=== PATIENT | female | born 1935 | race Caucasian/White ===

== ENCOUNTER 2017-10-20 09:26 | Inpatient (IN) | payer MEDICARE ==
[2017-10-20] VITALS (20 sets, daily range): BP systolic 126–226; BP diastolic 71–124; PULSE 74–99; RESP 18–43; TEMP 97.9–98.5; O2SAT 93–100
[~2017-10-20 09:26] MED LIST: ADVA250A INH; AMBI10TA PO; ATOR20TA42 PO; CALTTAB2 PO; COZA50TA PO; NORC7.5T PO; RIVA10 PO; SERT-132 PO; TAB-TAB PO; VITA10004 PO; WALKER STANDARD; Z.0.WHEELSTD
[2017-10-20 09:49] LABS: AUTOMATED NEUTROPHIL # 6.9 TH/MM3 (1.8-7.7); BASOPHIL % 0.4 % (0.0-2.0); EOSINOPHIL # 0.2 TH/MM3 (0-0.4); EOSINOPHIL % 2.1 % (0.0-4.0); HEMATOCRIT 40.8 % (35.0-46.0); HEMOGLOBIN 13.6 GM/DL (11.6-15.3); LYMPH % 9.7 % (9.0-44.0); LYMPHOCYTE # 0.8 TH/MM3 (1.0-4.8); MEAN CELL VOLUME 99.4 FL (80.0-100.0); MEAN CORPUSCULAR HEMOGLOBIN 33.1 PG (27.0-34.0); MEAN CORPUSCULAR HGB CONC 33.3 % (32.0-36.0); MEAN PLATELET VOLUME 7.9 FL (7.0-11.0); MONOCYTE # 0.7 TH/MM3 (0-0.9); NEUT % 79.8 % (16.0-70.0); PLATELET COUNT 250 TH/MM3 (150-450); RED BLOOD COUNT 4.11 MIL/MM3 (4.00-5.30); RED CELL DISTRIBUTION WIDTH 11.6 % (11.6-17.2); WHITE BLOOD COUNT 8.6 TH/MM3 (4.0-11.0)
[2017-10-20] MEDS ORDERED: MONT10TA4 PO (09:53)
[2017-10-20] MEDS ORDERED: BENZ1CAP54 PO (09:53)
[2017-10-20] MEDS ORDERED: CALC1TAB87 PO (09:53)
[2017-10-20] MEDS ORDERED: SERT-132 PO (09:53)
[2017-10-20] MEDS ORDERED: HYDR-2376 PO (09:53)
[2017-10-20] MEDS ORDERED: IPRASOL INH (09:53)
[2017-10-20] MEDS ORDERED: [UNRECOGNIZED DRUG - CODE] IV (09:53)
[2017-10-20] MEDS ORDERED: CYAN100025 SL (09:53)
[2017-10-20] MEDS ORDERED: ZOLP5TAB3 PO (09:53)
[2017-10-20] MEDS ORDERED: BUTA1CAP PO (09:53)
[2017-10-20] MEDS ORDERED: MULTTAB67 PO (09:53)
[2017-10-20] MEDS ORDERED: AZIT250T3 PO (09:53)
[2017-10-20] MEDS ORDERED: LEVO1INJ13 IV (09:53)
[2017-10-20] MEDS ORDERED: BUDE0.5S NEB (09:53)
[2017-10-20 09:58] LABS: CALCIUM 9.3 MG/DL (8.5-10.1)
[2017-10-20] MEDS ORDERED: LOSA100T PO (09:58)
[2017-10-20 09:59] LABS: BICARBONATE 26.9 MEQ/L (21.0-32.0)
--- NOTE | 2017-10-20 09:59 | PD ---
HPI Chief Complaint: Respiratory Symptoms Time Seen by Provider: 09:57 Travel History International Travel<30 days: No Contact w/Intl Traveler<30days: No Traveled to known affect area: No History of Present Illness HPI Patient presents with increased shortness of breath since Sunday. History of bronchiectasis and asthma followed by Dr. Warren. Apparently receiving Levaquin and Solu-Medrol infusions daily since Sunday. Awoke this morning with more labored breathing and difficulty clearing airway. She does not use oxygen at home. She did give herself some breathing treatments with minimal improvement. History of hypertension. She did not take her blood pressure medications this morning. Denies any nausea vomiting diarrhea or fever. Denies any chest pain. Denies any diaphoresis. Denies any radiation to left arm or jaw. Past medical history for hypertension and hyperlipidemia. PFSH Past Medical History Arthritis: Yes Asthma: Yes Depression: Yes Heart Rhythm Problems: No Cancer: No Cardiovascular Problems: Yes High Cholesterol: Yes Chest Pain: No Congestive Heart Failure: No COPD: Yes Diabetes: No Diminished Hearing: No Endocrine: No Genitourinary: No Hepatitis: No Hiatal Hernia: No Hypertension: Yes Immune Disorder: No Implanted Vascular Access Dvce: Yes Insomnia: Yes Musculoskeletal: Yes (ARTHRITIS, PREV SOLEDAD KNEE REPLACEMENTS) Neurologic: Yes (NEUROPATHY) Psychiatric: No Reproductive: No Respiratory: Yes Pneumonia: Yes Sleep Apnea: No Thyroid Disease: No Influenza Vaccination: Yes ?: Not Menopausal: Yes Past Surgical History Abdominal Surgery: No AICD: No Arteriovenous Shunt: No Cardiac Surgery: No Ear Surgery: No Endocrine Surgery: No Eye Surgery: Yes (CATARACTS BOTH EYES) Genitourinary Surgery: No Gynecologic Surgery: No Insulin Pump: No Joint Replacement: Yes (BILATERAL KNEE REPLACEMENTS) Oral Surgery: Yes (TONSILLECTOMY) Pacemaker: No Thoracic Surgery: No Tonsillectomy: Yes Other Surgery: Yes (right femur with plate) Social History Alcohol Use: Yes (WINE DAILY) Tobacco Use: No Substance Use: No Allergies-Medications (Allergen,Severity, Reaction): Coded Allergies: codeine (Unverified Adverse Reaction, Severe, NAUSEA, 10/20/17) Reported Meds & Prescriptions Reported Meds & Active Scripts Active Reported Losartan (Losartan Potassium) 100 Mg Tab 100 Mg PO DAILY Benzonatate 100 Mg Cap 100 Mg PO TID PRN Dexamethasone Inj 10 Mg/Ml Inj 10 Mg IV DAILY Levofloxacin Inj 500 Mg/100 Ml Bagp 500 Mg IV Q24H Duoneb (Ipratropium-Albuterol Neb) 0.5-2.5 Mg/3 Ml Neb 1 Nebule INH Q4HR NEB Budesonide Neb 0.5 Mg/2 Ml Neb 0.5 Mg NEB Q12HR NEB B-12 (Cyanocobalamin) 1,000 Mcg Subl 1,000 Mcg SL DAILY Calcium 600 with Vitamin D (Calcium Carbonate-Cholecalciferol) 600-400 mg-Unit Tab 2 Tab PO DAILY Multiple Vitamin 1 Tab 1 Tab PO DAILY Hydrocodone-Acetaminophen 7.5-300 Mg Tab 1 Tab PO Q4H PRN Azithromycin 250 Mg Tab 250 Mg PO DIRECTED Take 2 tabs (500 mg) on day 1 then 1 tab daily x 4 days. Fioricet (Jedyudbbnv-Qtrhamhjhmprw-Viqbobjd) 50-300-40 Mg Cap 1 Cap PO Q4H PRN Montelukast (Montelukast Sodium) 10 Mg Tab 10 Mg PO HS Zolpidem (Zolpidem Tartrate) 5 Mg Tab 5 Mg PO HS PRN Sertraline (Sertraline HCl) 50 Mg Tab 50 Mg PO DAILY Review of Systems Respiratory: Positive: Cough, Shortness of Breath, Wheezing Physical Exam Narrative GENERAL: Well-nourished, well-developed patient. SKIN: Focused skin assessment warm/dry. HEAD: Normocephalic. EYES: No scleral icterus. No injection or drainage. NECK: Supple, trachea midline. No JVD or lymphadenopathy. CARDIOVASCULAR: Regular rate and rhythm without murmurs, gallops, or rubs. RESPIRATORY: Decreased breath sounds in all shaikh using accessory muscles, and expiratory wheeze GASTROINTESTINAL: Abdomen soft, non-tender, nondistended. MUSCULOSKELETAL: No cyanosis, or edema. BACK: Nontender without obvious deformity. No CVA tenderness. Data Data Last Documented VS Vital Signs Date Time Temp Pulse Resp B/P (MAP) Pulse Ox O2 Delivery O2 Flow Rate FiO2 10/20/17 10:57 99 20 163/91 (115) 99 Nasal Cannula 2.00 10/20/17 10:15 98.3 Orders Orders Complete Blood Count With Diff (10/20/17 09:30) Basic Metabolic Panel (Bmp) (10/20/17 09:30) Iv Access Insert/Monitor (10/20/17 09:30) Ecg Monitoring (10/20/17 09:30) Oxygen Administration (10/20/17 09:30) Oximetry (10/20/17 09:30) Electrocardiogram (10/20/17 09:30) Comprehensive Metabolic Panel (10/20/17 09:59) B-Type Natriuretic Peptide (10/20/17 09:59) D-Dimer (10/20/17 09:59) Ckmb (Isoenzyme) Profile (10/20/17 09:59) Troponin I (10/20/17 09:59) Influenzae A/B Antigen (10/20/17 09:59) Blood Culture (10/20/17 09:59) Chest, Single Ap (10/20/17 09:59) Sodium Chloride 0.9% Flush (Ns Flush) (10/20/17 10:00) Methylprednisolone So Succ Inj (Solumedr (10/20/17 10:00) Albuterol-Ipratropium Neb (Duoneb Neb) (10/20/17 10:00) Levofloxacin 500 Mg Premix Inj (Levaquin (10/20/17 10:00) CKMB (10/20/17 09:35) CKMB% (10/20/17 09:35) Clonidine (Catapres) (10/20/17 11:45) Electrocardiogram (10/20/17 ) Ckmb (Isoenzyme) Profile (10/20/17 11:41) Troponin I (10/20/17 11:41) Admit Order (Ed Use Only) (10/20/17 ) Vital Signs (Adult) Q4H (10/20/17 11:58) Diet Heart Healthy (10/20/17 Lunch) Activity Oob With Assistance (10/20/17 11:58) Notify Dr: Other (10/20/17 11:58) Consult Pulmonology (10/20/17 ) Consult Cardiology (10/20/17 ) Labs Laboratory Tests Test 10/20/17 09:35 10/20/17 11:49 White Blood Count 8.6 TH/MM3 Red Blood Count 4.11 MIL/MM3 Hemoglobin 13.6 GM/DL Hematocrit 40.8 % Mean Corpuscular Volume 99.4 FL Mean Corpuscular Hemoglobin 33.1 PG Mean Corpuscular Hemoglobin Concent 33.3 % Red Cell Distribution Width 11.6 % Platelet Count 250 TH/MM3 Mean Platelet Volume 7.9 FL Neutrophils (%) (Auto) 79.8 % Lymphocytes (%) (Auto) 9.7 % Monocytes (%) (Auto) 8.0 % Eosinophils (%) (Auto) 2.1 % Basophils (%) (Auto) 0.4 % Neutrophils # (Auto) 6.9 TH/MM3 Lymphocytes # (Auto) 0.8 TH/MM3 Monocytes # (Auto) 0.7 TH/MM3 Eosinophils # (Auto) 0.2 TH/MM3 Basophils # (Auto) 0.0 TH/MM3 CBC Comment DIFF FINAL Differential Comment D-Dimer Quantitative (PE/DVT) 0.21 MG/L FEU Blood Urea Nitrogen 12 MG/DL Creatinine 0.66 MG/DL Random Glucose 124 MG/DL Total Protein 7.7 GM/DL Albumin 4.1 GM/DL Calcium Level 9.3 MG/DL Alkaline Phosphatase 61 U/L Aspartate Amino Transf (AST/SGOT) 20 U/L Alanine Aminotransferase (ALT/SGPT) 26 U/L Total Bilirubin 0.5 MG/DL Sodium Level 129 MEQ/L Potassium Level 3.5 MEQ/L Chloride Level 93 MEQ/L Carbon Dioxide Level 26.9 MEQ/L Anion Gap 9 MEQ/L Estimat Glomerular Filtration Rate 86 ML/MIN Total Creatine Kinase 102 U/L 86 U/L Creatine Kinase MB 4.6 NG/ML Troponin I 0.09 NG/ML 0.09 NG/ML B-Type Natriuretic Peptide 179 PG/ML MDM Medical Decision Making Medical Screen Exam Complete: Yes Emergency Medical Condition: Yes Differential Diagnosis Acute bronchiectasis, pneumonia, respiratory failure Narrative Course Assessment plan discussed with patient and at bedside. EKG reveals sinus rhythm rate of [address] segment depression in the lateral leads. Cardiac enzymes mildly elevated. Patient has no history of cardiac disease nor does she see a bond broker. History of hypertension and hyperlipidemia. Repeat EKG reveals no progression of ST depression. Repeat cardiac enzymes reveals no change. Last 72 hours Impressions Chest X-Ray 10/20/17 0959 Signed Impressions: Service Date/Time: Friday, October 20, 2017 10:03 - CONCLUSION: Emphysematous changes of the lungs. No acute abnormality seen. No evidence of congestive heart failure. Barbara Ruelas MD Physician Communication Physician Communication Spoke with Dr. Snider who is in agreement will admit with respiratory and cardiology consults Diagnosis Primary Impression: Acute exacerbation of bronchiectasis Admitting Information Admitting Physician Requests: Admit Dwaine Paula MD Oct 20, 2017 09:59
[2017-10-20] MEDS ORDERED: methylPREDNISolone SOD SUCC 125 MG/2 ML VIAL IV PUSH ONE (10:00)
[2017-10-20] MEDS ORDERED: SODIUM CHLORIDE 0.9% FLUSH 10 ML FLUSH IVF PRN (10:00)
[2017-10-20] MEDS ORDERED: LEVOFLOXACIN 500 MG PREMIX INJ 100 ML IV ONE (10:00)
[2017-10-20 10:02] LABS: CREATININE 0.66 MG/DL (0.50-1.00)
[2017-10-20] MEDS: RESP: ALBUTEROL 2.5 MG/IPRATROPIUM 0.5 MG NEB (SCH) INH ×5 (10:15→20:04)
[2017-10-20 10:22] LABS: BICARBONATE 26.9 MEQ/L (21.0-32.0); BLOOD UREA NITROGEN 12 MG/DL (7-18); CHLORIDE 93 MEQ/L (98-107); CREATININE 0.66 MG/DL (0.50-1.00); GLOMERULAR FILTRATION RATE 86 ML/MIN (>89); SODIUM (NA) 129 MEQ/L (136-145)
[2017-10-20 10:23] LABS: CALCIUM 9.3 MG/DL (8.5-10.1); GLUCOSE,RANDOM 124 MG/DL (74-106)
--- NOTE | 2017-10-20 10:27 | RADRPT ---
EXAM DATE/TIME: 10/20/2017 10:03 [facility] COMPARISON: CHEST SINGLE AP, June 17, 2015, 0:48. INDICATIONS : Short of breath. MEDICAL HISTORY : None. SURGICAL HISTORY : None. ENCOUNTER: Initial ACUITY: 1 day PAIN SCORE: 7/10 LOCATION: Bilateral chest FINDINGS: Single portable upright view of the chest demonstrate stable appearance significant hyperinflation. T he lungs are clear. Heart size appears mildly enlarged. Pulmonary vasculature is normal in caliber. O sseous structures demonstrates degenerative change. CONCLUSION: Emphysematous changes of the lungs. No acute abnormality seen. No evidence of congestive heart faileliana Ruelas MD on October 20, 2017 at 10:24 Board Certified Radiologist. This report was verified electronically.
[2017-10-20 10:31] LABS: ALBUMIN 4.1 GM/DL (3.4-5.0)
[2017-10-20 10:34] LABS: ALT (GPT) 26 U/L (10-53); AST (GOT) 20 U/L (15-37)
[2017-10-20 10:36] LABS: TOTAL BILIRUBIN ADULT 0.5 MG/DL (0.2-1.0); TOTAL PROTEIN 7.7 GM/DL (6.4-8.2)
[2017-10-20 10:37] LABS: ALKALINE PHOSPHATASE 61 U/L (45-117)
[2017-10-20 10:39] LABS: TROPONIN I 0.09 NG/ML (0.02-0.05)
[2017-10-20] MEDS ORDERED: cloNIDine HCL 0.1 MG TAB PO ONE (11:45)
[2017-10-20 12:18] LABS: TROPONIN I 0.09 NG/ML (0.02-0.05)
[2017-10-20] MEDS ORDERED: SODIUM CHLORIDE 0.9% FLUSH 10 ML FLUSH IV FLUSH PRN (13:30)
--- NOTE | 2017-10-20 14:03 | HHI.HP ---
[facility] Lauri Gonzales M.D. Admission Diagnosis Acute bronchiectasis Diagnoses: Chief Complaint: SOB Travel History International Travel<30 Days: No Contact w/Intl Traveler <30 Da: No Traveled to Known Affected Are: No History of Present Illness Patient is an 82-year-old female with a history of COPD who comes in with increased shortness of breath and dyspnea on exertion for about a week. She did see her primary jig hand 4 days ago and was given IV antibiotics and IV steroid infusions in the office however this morning she began feeling much worse with increased edema and increased shortness of breath and her blood pressure was elevated. She came to the hospital for further evaluation. She has received bronchodilators here and felt a little bit better. Her respiratory rate and blood pressure were elevated on arrival, blood pressure was 226/115 and respiratory rate is 22. She had an abnormal EKG was discharged from left ventricular strain and elevated troponin. Patient also chest pain. She has not had any chest pressure. Patient's been recommended for admission to the hospital due to acute respiratory failure and edema possible anginal equivalent Review of Systems Constitutional: DENIES: Diaphoretic episodes, Fatigue, Fever, Weight gain, Weight loss, Chills, Dizziness, Change in appetite, Night Sweats Endocrine: DENIES: Abnorml menstrual pattern, Heat/cold intolerance, Polydipsia , Polyuria, Polyphagia Eyes: DENIES: Blurred vision, Diplopia, Eye inflammation, Eye pain, Vision loss , Photosensitivity, Double Vision Ears, nose, mouth, throat: DENIES: Tinnitus, Hearing loss, Vertigo, Nasal discharge, Oral lesions, Throat pain, Hoarseness, Ear Pain, Running Nose, Epistaxis, Sinus Pain, Toothache, Odynophagia Respiratory: DENIES: Apneas, Cough, Snoring, Wheezing, Hemoptysis, Sputum production, Shortness of breath Cardiovascular: DENIES: Chest pain, Palpitations, Syncope, Dyspnea on Exertion , PND, Lower Extremity Edema, Orthopnea, Claudication Gastrointestinal: DENIES: Abdominal pain, Black stools, Bloody stools, Constipation, Diarrhea, Nausea, Vomiting, Difficulty Swallowing, Anorexia Genitourinary: DENIES: Abnormal vaginal bleeding, Dysmenorrhea, Dyspareunia, Sexual dysfunction, Urinary frequency, Urinary incontinence, Urgency, Hematuria , Dysuria, Nocturia, Vaginal discharge Musculoskeletal: DENIES: Joint pain, Muscle aches, Stiffness, Joint Swelling, Back pain, Neck pain Integumentary: DENIES: Abnormal pigmentation, Pruritus, Rash, Nail changes, Breast masses, Breast skin changes, Nipple discharge Hematologic/lymphatic: DENIES: Bruising, Lymphadenopathy Immunologic/allergic: DENIES: Eczema, Urticaria Neurologic: DENIES: Abnormal gait, Headache, Localized weakness, Paresthesias, Seizures, Speech Problems, Tremor, Poor Balance Psychiatric: DENIES: Anxiety, Confusion, Mood changes, Depression, Hallucinations, Agitation, Suicidal Ideation, Homicidal Ideation, Delusions Except as stated in HPI: all other systems reviewed are Neg Past Family Social History Past Medical History COPD Lower extremity edema Hypertension Chronic pain Past Surgical History Cataracts Bilateral knee replacement tonsils Reported Medications Reviewed in the EMR, recent antibiotics, levofloxacin Allergies: Coded Allergies: codeine (Unverified Adverse Reaction, Severe, NAUSEA, 10/20/17) Active Ordered Medications Reviewed in the EMR Family History Mother from lung disease at 82, father from coronary disease in his 80s Social History Denies tobacco or alcohol dependency currently lives with her Physical Exam Vital Signs Vital Signs Date Time Temp Pulse Resp B/P (MAP) Pulse Ox O2 Delivery O2 Flow Rate FiO2 10/20/17 12:37 94 99 Nasal Cannula 2.00 10/20/17 10:57 99 20 163/91 (115) 99 Nasal Cannula 2.00 10/20/17 10:15 100 Nasal Cannula 2.00 10/20/17 10:15 98.3 85 22 192/100 (130) 100 Nasal Cannula 2.00 10/20/17 09:53 26 96 Room Air 10/20/17 09:44 80 18 219/98 (138) 96 Room Air 10/20/17 09:44 96 Room Air 10/20/17 09:31 98.3 98 22 226/115 (152) 93 Physical Exam GENERAL: This is a well-nourished, well-developed patient, with acute shortness of breath SKIN: No rashes, ecchymoses or lesions. Cool and dry. HEAD: Atraumatic. Normocephalic. No temporal or scalp tenderness. EYES: Pupils equal round and reactive. Extraocular motions intact. No scleral icterus. No injection or drainage. ENT: Nose without bleeding, purulent drainage or septal hematoma. Throat without erythema, tonsillar hypertrophy or exudate. Uvula midline. Airway patent. NECK: Trachea midline. No JVD or lymphadenopathy. Supple, nontender, no meningeal signs. CARDIOVASCULAR: Regular rate and rhythm without murmurs, gallops, or rubs. RESPIRATORY: Decreased airflow without wheezes or rhonchi GASTROINTESTINAL: Abdomen soft, non-tender, nondistended. No hepato-splenomegaly , or palpable masses. No guarding. MUSCULOSKELETAL: Extremities without clubbing, cyanosis, or edema. No joint tenderness, effusion, or edema noted. No calf tenderness. Negative Homans sign bilaterally. NEUROLOGICAL: Awake and alert. Cranial nerves II through XII intact. Motor and sensory grossly within normal limits. Five out of 5 muscle strength in all muscle groups. Normal speech. Laboratory Laboratory Tests Test 10/20/17 09:35 10/20/17 11:49 White Blood Count 8.6 Red Blood Count 4.11 Hemoglobin 13.6 Hematocrit 40.8 Mean Corpuscular Volume 99.4 Mean Corpuscular Hemoglobin 33.1 Mean Corpuscular Hemoglobin Concent 33.3 Red Cell Distribution Width 11.6 Platelet Count 250 Mean Platelet Volume 7.9 Neutrophils (%) (Auto) 79.8 Lymphocytes (%) (Auto) 9.7 Monocytes (%) (Auto) 8.0 Eosinophils (%) (Auto) 2.1 Basophils (%) (Auto) 0.4 Neutrophils # (Auto) 6.9 Lymphocytes # (Auto) 0.8 Monocytes # (Auto) 0.7 Eosinophils # (Auto) 0.2 Basophils # (Auto) 0.0 CBC Comment DIFF FINAL Differential Comment D-Dimer Quantitative (PE/DVT) 0.21 Blood Urea Nitrogen 12 Creatinine 0.66 Random Glucose 124 Total Protein 7.7 Albumin 4.1 Calcium Level 9.3 Alkaline Phosphatase 61 Aspartate Amino Transf (AST/SGOT) 20 Alanine Aminotransferase (ALT/SGPT) 26 Total Bilirubin 0.5 Sodium Level 129 Potassium Level 3.5 Chloride Level 93 Carbon Dioxide Level 26.9 Anion Gap 9 Estimat Glomerular Filtration Rate 86 Total Creatine Kinase 102 86 Creatine Kinase MB 4.6 Troponin I 0.09 0.09 B-Type Natriuretic Peptide 179 Date/Time Source Procedure Growth Status 10/20/17 09:40 Blood Peripheral Aerobic Blood Culture Pending Received 10/20/17 09:40 Blood Peripheral Anaerobic Blood Culture Pending Received 10/20/17 10:05 Nasal Aspirate Influenza Types A,B Antigen (TROY) - Final NEGATIVE FOR FLU A AND B ANTIGEN.... Complete Result Diagram: 10/20/17 0935 10/20/17 0935 Imaging Last Impressions Chest X-Ray 10/20/1759 Signed Impressions: Service Date/Time: Sunday, October 20, 2017 10:03 - CONCLUSION: Emphysematous changes of the lungs. No acute abnormality seen. No evidence of congestive heart failure. MD Flores Walsh VTE Risk Assessment Balwinderrini VTE Risk Assessment: Mod/High Risk (score >= 2) Caprini Risk Assessment Model Point Value = 1 Point Value = 2 Point Value = 3 Point Value = 5 Age 41-60 Minor surgery BMI > 25 kg/m2 Swollen legs Varicose veins or History of unexplained or recurrent spontaneous Oral contraceptives or hormone replacement Sepsis (< 1 month) Serious lung disease, including pneumonia (< 1 month) Abnormal pulmonary function Acute myocardial infarction Congestive heart failure (< 1 month) History of inflammatory bowel disease Medical patient at bed rest Age 61-74 Arthroscopic surgery Major open surgery (> 45 min) Laparoscopic surgery (> 45 min) Malignancy Confined to bed (> 72 hours) Immobilizing plaster cast Central venous access Age >= 75 History of VTE Family history of VTE Factor V Leiden Prothrombin [id number] Lupus anticoagulant Anticardiolipin antibodies Elevated serum homocysteine Heparin-induced thrombocytopenia Other congenital or acquired thrombophilia Stroke (< 1 month) Elective arthroplasty Hip, pelvis, or leg fracture Acute spinal cord injury (< 1 month) Prophylaxis Regimen Total Risk Factor Score Risk Level Prophylaxis Regimen 0-1 Low Early ambulation 2 Moderate Order ONE of the following: *Sequential Compression Device (SCD) *Heparin 5000 units SQ BID 3-4 Higher Order ONE of the following medications: *Heparin 5000 units SQ TID *Enoxaparin/Lovenox 40 mg SQ daily (WT < 150 kg, CrCl > 30 mL/min) *Enoxaparin/Lovenox 30 mg SQ daily (WT < 150 kg, CrCl > 10-29 mL/min) *Enoxaparin/Lovenox 30 mg SQ BID (WT < 150 kg, CrCl > 30 mL/min) AND/OR *Sequential Compression Device (SCD) 5 or more Highest Order ONE of the following medications: *Heparin 5000 units SQ TID (Preferred with Epidurals) *Enoxaparin/Lovenox 40 mg SQ daily (WT < 150 kg, CrCl > 30 mL/min) *Enoxaparin/Lovenox 30 mg SQ daily (WT < 150 kg, CrCl > 10-29 mL/min) *Enoxaparin/Lovenox 30 mg SQ BID (WT < 150 kg, CrCl > 30 mL/min) AND *Sequential Compression Device (SCD) Assessment and Plan Problem List: (1) COPD exacerbation ICD Code: J44.1 - Chronic obstructive pulmonary disease with (acute) exacerbation Plan: We will continue with nebulized bronchodilators, IV antibiotics and IV steroids Continue with oxygen as needed Patient does follow with Dr. Warren (2) Hypertensive urgency ICD Code: I16.0 - Hypertensive urgency Plan: Improved with current regimen Add metoprolol (3) Troponin level elevated ICD Code: R74.8 - Abnormal levels of other serum enzymes Plan: Multifactorial likely Rule out acute coronary syndrome Continue with treatment for blood pressure Echocardiogram pending EKG on my review does show left ventricular strain without any ST segment changes consistent with ischemia We will continue with aspirin, oxygen, add a beta-matias (4) SOB (shortness of breath) ICD Code: R06.02 - Shortness of breath Plan: Multifactorial at this time Continue with oxygen as needed Follow clinically for treatment of COPD exacerbation (5) Hyponatremia ICD Code: E87.1 - Hypo-osmolality and hyponatremia Plan: Likely due to chronic pulmonary disease We will follow trend Code Status DNR Discussed Condition With Patient, ER Physician Certification 2 Midnight Certification Type: Admission for Inpatient Services Order for Inpatient Services The services are ordered in accordance with Medicare regulations or non- Medicare payer requirements, as applicable. In the case of services not specified as inpatient-only, they are appropriately provided as inpatient services in accordance with the 2-midnight benchmark. Estimated LOS (days): 3 3 days is the estimated time the patient will need to remain in the hospital, assuming treatment plan goals are met and no additional complications. Post-Hospital Plan: Rema White MD Oct 20, 2017 14:03
[2017-10-20] MEDS: METOPROLOL TARTRATE 25 MG TAB PO SCH ×2 (14:51→20:36)
[2017-10-20] MEDS: LOSARTAN 50 MG TAB PO SCH (14:51)
[2017-10-20] MEDS: AZITHROMYCIN 250 MG TAB PO SCH (14:51)
[2017-10-20] MEDS: ENOXAPARIN SODIUM 40 MG/0.4 ML SYRINGE SQ SCH (14:52)
[2017-10-20] MEDS: FUROSEMIDE 40 MG/4 ML VIAL IV PUSH SCH (14:52)
[2017-10-20] MEDS: cefTRIAXone INJ 1,000 MG in SODIUM CHLORIDE 0.9% INJ 100 ML IV SCH (14:52)
[2017-10-20] MEDS: methylPREDNISolone SOD SUCC 125 MG/2 ML VIAL IV PUSH SCH ×2 (14:52→20:36)
[2017-10-20] MEDS: ASPIRIN 325 MG TAB PO SCH (14:52)
[2017-10-20] MEDS ORDERED: CHLORHEXIDINE GLUCONATE 2 % 1 PACK (2 CLOTHS)(extra cloths) TOPICAL PRN (15:30)
[2017-10-20 16:09] LABS: TROPONIN I 0.06 NG/ML (0.02-0.05)
--- NOTE | 2017-10-20 18:28 | ECHRPT ---
Indication: CONCLUSIONS The left ventricular systolic function is moderately reduced with an estimated ejection fraction in the range of 40-45%. Mild mitral valve regurgitation. There is mild tricuspid valve regurgitation. Doppler parameters are consistent with impaired left ventricular relaxtion (grade 1 diastolic dysfun ction). BP: / HR: Rhythm: Sinus MEASUREMENTS (Male / Female) Normal Values Technical Quality:Good 2D ECHO LV Diastolic Diameter PLAX 5.2 cm 4.2 - 5.9 / 3.9 - 5.3 cm LV Systolic Diameter PLAX 4.3 cm IVS Diastolic Thickness 1.0 cm 0.6 - 1.0 / 0.6 - 0.9 cm LVPW Diastolic Thickness 1.0 cm 0.6 - 1.0 / 0.6 - 0.9 cm LV Relative Wall Thickness 0.4 RV Internal Dim ED PLAX 3.0 cm LVOT Diameter 1.5 cm LA Systolic Diameter LX 4.1 cm 3.0 - 4.0 / 2.7 - 3.8 cm LV Ejection Fraction MOD 4C 42.6 % LV Ejection Fraction 4C AL 42.4 % M-MODE Aortic Root Diameter MM 2.5 cm LA Systolic Diameter MM 3.8 cm LA Ao Ratio MM 1.5 AV Cusp Separation MM 1.7 cm DOPPLER AV Peak Velocity 143.0 cm/s AV Peak Gradient 8.2 mmHg LVOT Peak Velocity 83.4 cm/s LVOT Peak Gradient 2.8 mmHg AV Area Cont Eq pk 1.0 cm MV Area PHT 9.6 cm Mitral E Point Velocity 74.5 cm/s Mitral A Point Velocity 92.3 cm/s Mitral E to A Ratio 0.8 TR Peak Velocity 347.0 cm/s TR Peak Gradient 48.2 mmHg Right Atrial Pressure 10.0 mmHg Pulmonary Artery Systolic Pressu 58.2 mmHg Right Ventricular Systolic Press 58.2 mmHg PV Peak Velocity 88.2 cm/s PV Peak Gradient 3.1 mmHg FINDINGS LEFT VENTRICLE The left ventricular systolic function is moderately reduced with an estimated ejection fraction in the range of 40-45%. Normal left ventricular size. Wall thickness is normal. Doppler parameters are consistent with impaired left ventricular relaxtion (grade 1 diastolic dysfun ction). RIGHT VENTRICLE Normal right ventricular size and systolic function. LEFT ATRIUM The left atrial size is mildly dilated. RIGHT ATRIUM The right atrial size is normal. ATRIAL SEPTUM Normal atrial septal thickness AORTA The aortic root and proximal ascending aorta are normal in size on limited imaging. MITRAL VALVE Structurally normal mitral valve. Mild mitral annular calcification. Mild mitral valve regurgitation. No mitral valve stenosis. AORTIC VALVE Trileaflet aortic valve. Aortic valve sclerosis is present. No aortic valve stenosis. No aortic valve regurgitation. TRICUSPID VALVE Structurally normal tricuspid valve. There is mild tricuspid valve regurgitation. The estimated pulmonary arterial pressure is 58.2 mmHg. PULMONARY VALVE No pulmonary valve regurgitation or stenosis. VESSELS The inferior vena cava is normal in size. PERICARDIUM No pericardial effusion. Juan Soto DO (Electronically Signed) Final Date:20 October 2017 18:27
[2017-10-20] MEDS: MONTELUKAST SODIUM 10 MG TAB PO SCH (20:35)
[2017-10-20] MEDS: SODIUM CHLORIDE 0.9% FLUSH 10 ML FLUSH IV FLUSH SCH (20:36)
--- NOTE | 2017-10-20 23:07 | MB ---
cc: Juan Soto DO DATE: 10/20/2017 REASON FOR CONSULTATION: Elevated troponin. HISTORY OF PRESENT ILLNESS: Brittaney Pérez is a pleasant 82-year-old female who presented to [facility] Emergency Room due to shortness of breath as well as dyspnea on exertion. She was seen by her primary operations officer around 4 days ago and was given IV antibiotics as well as IV steroids in the office. Over the past 4 days she feels like her shortness of breath has increased and also noted that her blood pressure was elevated. Because of this, she presented to the emergency room. She denies any chest pain throughout the episodes. On arrival, she was found to have a blood pressure of 226/115. Troponins were checked and they were found to be minimally elevated and so she was admitted to the ICU. In seeing her, she is currently hemodynamically stable without chest pain, but still has baseline shortness of breath with wheezing. PAST MEDICAL HISTORY: 1. COPD. 2. Hypertension. 3. Chronic pain. PAST SURGICAL HISTORY: 1. Cataract. 2. Bilateral knee replacement. 3. Tonsillectomy. ALLERGIES: CODEINE. MEDICATIONS: 1. Azithromycin 250 mg daily. 2. Levofloxacin 500 mg daily. 3. DuoNeb every 4 hours as needed for shortness of breath. 4. Losartan 100 mg daily. 5. Hydrocodone/acetaminophen 7.5/300 every 4 hours as needed for pain. 6. Fioricet 1 cap every 4 hours as needed for headache. 7. Sertraline 50 mg daily. 8. Ambien 5 mg every night as needed for insomnia. 9. ____ 100 mg t.i.d. as needed for cough. 10. Budesonide 0.5 mg every 12 hours. 11. Montelukast 10 mg every night. 12. Dexamethasone 10 mg daily. FAMILY HISTORY: Denies premature coronary artery disease or sudden cardiac within the family. SOCIAL HISTORY: Denies tobacco, alcohol or drug abuse. REVIEW OF SYSTEMS: Fourteen systems were reviewed including osteopathic. Pertinent positives and negatives above, otherwise negative. PHYSICAL EXAMINATION: VITAL SIGNS: Temperature 98.1, heart rate 84, blood pressure 179/105, respirations 26, pulse oximetry 99% on 3 liters. GENERAL: The patient appears well in no acute distress. Alert, awake and oriented x 3. HEENT: Extraocular muscles intact. Mucous membranes moist. NECK: Supple. No JVD at 45 degrees. No carotid bruits heard bilaterally. Carotid upstroke is brisk in nature. HEART: Regular rate and rhythm. Positive first and second heart sounds with no noted murmurs, gallops or rubs. LUNGS: Have decreased breath sounds at bilateral bases with overall minimal air movement and expiratory wheezing noted. ABDOMEN: Soft, nontender, nondistended, no organomegaly noted. EXTREMITIES: Show trace edema bilaterally. Femoral and distal pulses are intact bilaterally. NEUROLOGIC: No focal deficits. SKIN: Warm, dry and intact. OSTEOPATHIC: No kyphoscoliosis, lordosis or paraspinal tender points. LABORATORY DATA: Hemoglobin 13.6, hematocrit 40.8, platelets 250. Potassium 3.5, BUN 12, creatinine 0.66. Troponin 0.09 decreasing to 0.06. BNP 179. Electrocardiogram (10/20/2017 at 0936) sinus rhythm, LVH by voltage criteria. IMPRESSIONS: 1. Chronic obstructive pulmonary disease exacerbation. 2. Hypertensive urgency. 3. Elevated troponin. 4. Shortness of breath. 5. Hyponatremia. RECOMMENDATIONS: 1. Ms. Pérez presented with shortness of breath which appears could be multifactorial. 2. She does appear to have a COPD exacerbation with extensive wheezing and this will be treated by the primary care team. 3. She also had accelerated hypertension with a blood pressure of 226/115 on arrival. 4. The exacerbation of her hypertension may be due to being placed on steroids outpatient. 5. We will check a 2-D echo to look at her overall left ventricular function, cardiac structure and possible valvulopathies. 6. She does have a minimally elevated troponin and I believe that this is most likely type 2 in nature due to her extensive hypertension as well as her COPD exacerbation. 7. We did discuss consideration of ischemic evaluation, whether inpatient or outpatient, and she will have to think about this. Overall, she needs to be breathing better before being given Lexiscan to try to avoid bronchospasm. 8. Overall, she needs better blood pressure control. She has been started on metoprolol tartrate and will continue on her losartan, I will plan to add Norvasc 5 mg and this can be increased to help further with blood pressure control. 9. Further recommendations will be made based on the hospital course. Thank you for allowing me to see Brittaney Pérez. If there are any questions, please do not hesitate to call. DO ADE Sampson/ , 10:42 PM , 11:06 PM
[2017-10-21] VITALS (31 sets, daily range): BP systolic 116–185; BP diastolic 61–104; PULSE 66–84; RESP 16–40; TEMP 97.9–98.5; O2SAT 95–99
[2017-10-21] MEDS: ZOLPIDEM TARTRATE 5 MG TAB PO PRN ×2 (01:33→22:49)
[2017-10-21] MEDS: methylPREDNISolone SOD SUCC 125 MG/2 ML VIAL IV PUSH SCH ×4 (01:34→19:59)
[2017-10-21] MEDS: CHLORHEXIDINE GLUCONATE 2 % 1 PACK (2 CLOTHS)(taper/protocol) TOPICAL SCH (01:35)
[2017-10-21] MEDS: RESP: ALBUTEROL 2.5 MG/3 ML NEB (PRN) INH (04:13)
[2017-10-21] MEDS: cloNIDine HCL 0.1 MG TAB PO PRN (04:52)
[2017-10-21 07:18] LABS: BICARBONATE 26.7 MEQ/L (21.0-32.0); CALCIUM 8.6 MG/DL (8.5-10.1); CREATININE 0.57 MG/DL (0.50-1.00)
[2017-10-21] MEDS: RESP: ALBUTEROL 2.5 MG/IPRATROPIUM 0.5 MG NEB (SCH) INH ×3 (07:51→19:54)
[2017-10-21] MEDS: FUROSEMIDE 40 MG/4 ML VIAL IV PUSH SCH (09:50)
[2017-10-21] MEDS: METOPROLOL TARTRATE 25 MG TAB PO SCH ×2 (09:51→19:59)
[2017-10-21] MEDS: ASPIRIN 325 MG TAB PO SCH (09:51)
[2017-10-21] MEDS: LOSARTAN 50 MG TAB PO SCH (09:51)
[2017-10-21] MEDS: amLODIPine BESYLATE 5 MG TAB PO SCH (09:51)
[2017-10-21] MEDS: AZITHROMYCIN 250 MG TAB PO SCH (09:51)
[2017-10-21] MEDS: SERTRALINE HCL 50 MG TAB PO SCH (09:51)
[2017-10-21] MEDS: SODIUM CHLORIDE 0.9% FLUSH 10 ML FLUSH IV FLUSH SCH ×2 (09:52→19:59)
--- NOTE | 2017-10-21 13:42 | PD.CARD.PN ---
Subjective Subjective Remarks No events overnight SOB somewhat better Blood pressure labile overnight Objective Medications Current Medications Medications (Trade) Dose Ordered Sig/Judy Route Start Time Stop Time Status Last Admin (NS Flush) 2 ml UNSCH PRN IVF 10/20/17 10:00 10/20/17 10:11 (NS Flush) 2 ml BID IV FLUSH 10/20/17 21:00 10/21/17 09:52 (NS Flush) 2 ml UNSCH PRN IV FLUSH 10/20/17 13:30 (Duoneb Neb) 1 ampule Q6HR WHILE AWAKE NEB INH 10/20/17 14:00 10/21/17 13:07 (Albuterol Neb) 2.5 mg Q2HR NEB PRN INH 10/20/17 13:30 10/21/17 04:13 (SoluMEDROL INJ) 60 mg Q6H IV PUSH 10/20/17 14:00 10/21/17 09:51 (Zithromax) 500 mg Taper DAILY PO 10/20/17 15:00 10/25/17 14:59 10/21/17 09:51 Ceftriaxone Sodium 1000 mg/ Sodium Chloride 100 ml @ 200 mls/hr Q24H IV 10/20/17 15:00 10/20/17 14:52 (Lovenox Inj) 40 mg Q24H SQ 10/20/17 14:00 10/20/17 14:52 (Lasix Inj) 40 mg DAILY IV PUSH 10/20/17 15:00 10/21/17 09:50 (Cozaar) 100 mg DAILY PO 10/20/17 15:00 10/21/17 09:51 (Singulair) 10 mg HS PO 10/20/17 21:00 10/20/17 20:35 (Zoloft) 50 mg DAILY PO 10/21/17 09:00 10/21/17 09:51 (Ambien) 5 mg HS PRN PO 10/20/17 21:00 10/21/17 01:33 (Lopressor) 25 mg Q12HR PO 10/20/17 15:00 10/21/17 09:51 (Aspirin) 325 mg DAILY PO 10/20/17 14:00 10/21/17 09:51 Miscellaneous Information Patient in critical care unit? Ass... Q361D .XX 10/20/17 15:30 10/20/17 15:30 (Chlorhexidine 2% Cloth) 3 pack DAILY@04 TOPICAL 10/21/17 04:00 10/25/17 04:01 10/21/17 01:35 (Chlorhexidine 2% Cloth) 3 pack UNSCH PRN TOPICAL 10/20/17 15:30 10/25/17 15:28 (Catapres) 0.1 mg Q6H PRN PO 10/20/17 18:00 10/21/17 04:52 (Norvasc) 5 mg DAILY PO 10/21/17 09:00 10/21/17 09:51 Vital Signs / I&O Vital Signs Date Time Temp Pulse Resp B/P (MAP) Pulse Ox O2 Delivery O2 Flow Rate FiO2 10/21/17 13:00 72 20 96 10/21/17 12:45 72 25 130/64 (86) 96 10/21/17 12:00 76 10/21/17 11:45 66 20 135/69 (91) 96 10/21/17 10:45 78 40 165/83 (110) 97 10/21/17 10:00 84 10/21/17 09:45 80 22 119/65 (83) 97 10/21/17 08:45 98.3 84 38 131/71 (91) 96 10/21/17 08:00 72 10/21/17 07:52 96 Nasal Cannula 2.00 10/21/17 06:21 72 20 116/61 (79) 96 10/21/17 06:18 84 10/21/17 04:30 84 20 171/78 (109) 99 10/21/17 04:00 83 10/21/17 03:45 98.1 78 27 185/104 (131) 98 10/21/17 02:45 68 17 180/82 (114) 99 10/21/17 02:00 80 10/21/17 00:09 97.9 68 16 173/85 (114) 98 10/21/17 00:05 76 10/20/17 22:00 81 10/20/17 20:19 97.9 74 33 138/72 (94) 98 10/20/17 20:12 78 10/20/17 20:04 98 Nasal Cannula 3.00 10/20/17 19:00 80 26 151/79 (103) 100 10/20/17 18:16 98.5 80 28 126/71 (89) 99 10/20/17 17:45 80 28 198/92 (127) 98 10/20/17 17:26 84 26 179/105 (129) 99 10/20/17 17:15 84 25 206/103 (137) 99 10/20/17 16:50 84 22 177/96 (123) 100 10/20/17 16:35 88 39 208/117 (147) 100 10/20/17 16:30 Nasal Cannula 3.00 10/20/17 16:00 84 43 218/124 (155) 98 10/20/17 14:49 80 26 159/81 (107) 98 10/20/17 14:02 98.1 90 36 178/97 (124) 97 10/20/17 13:45 99 20 176/76 (109) 99 Nasal Cannula 2.00 I/O 10/20/17 10/20/17 10/20/17 10/21/17 10/21/17 10/21/17 07:00 15:00 23:00 07:00 15:00 23:00 Intake Total 100 ml Balance 100 ml Intake IV Total 100 ml # Voids 3 Physical Exam GENERAL: NAD, AAOx3 SKIN: Warm and dry. HEAD: Atraumatic. Normocephalic. EYES: Pupils equal and round. No scleral icterus. No injection or drainage. ENT: No nasal bleeding or discharge. Mucous membranes pink and moist. NECK: Trachea midline. No JVD. CARDIOVASCULAR: Regular rate and rhythm. RESPIRATORY: No accessory muscle use. Bilateral scattered rhonchi, expiratory wheezing GASTROINTESTINAL: Abdomen soft, non-tender, nondistended. Hepatic and splenic margins not palpable. MUSCULOSKELETAL: Extremities without clubbing, cyanosis, or edema. No obvious deformities. NEUROLOGICAL: Awake and alert. No obvious cranial nerve deficits. Motor grossly within normal limits. Five out of 5 muscle strength in the arms and legs. Normal speech. PSYCHIATRIC: Appropriate mood and affect; insight and judgment normal. Laboratory Laboratory Tests Test 10/20/17 14:15 10/20/17 15:10 10/21/17 06:15 Nasal Screen MRSA (PCR) NEGATIVE Staphylococcus aureus (PCR)(LAB) NEGATIVE Total Creatine Kinase 85 U/L Troponin I 0.06 NG/ML Blood Urea Nitrogen 17 MG/DL Creatinine 0.57 MG/DL Random Glucose 151 MG/DL Calcium Level 8.6 MG/DL Sodium Level 125 MEQ/L Potassium Level 3.5 MEQ/L Chloride Level 90 MEQ/L Carbon Dioxide Level 26.7 MEQ/L Anion Gap 8 MEQ/L Estimat Glomerular Filtration Rate 102 ML/MIN Assessment and Plan Problem List: (1) Asthma in adult ICD Codes: J45.909 - Asthma in adult Status: Chronic (2) Hypertensive urgency ICD Codes: I16.0 - Hypertensive urgency (3) Troponin level elevated ICD Codes: R74.8 - Abnormal levels of other serum enzymes (4) COPD exacerbation ICD Codes: J44.1 - Chronic obstructive pulmonary disease with (acute) exacerbation (5) SOB (shortness of breath) ICD Codes: R06.02 - Shortness of breath Assessment and Plan 1) SOB Multi-factorial, most likely COPD exacerbation 2) HTN urgency Blood pressure of 226/115 on arrival may be due to outpt IV steroids Overall blood pressure has been somewhat labile, would attempt to avoid Clonidine as possible and increase chronic medications over using PRN meds Started on Norvasc, may be increased if needed to help control 3) Minimally elevated troponins Most likely Type 2 due to COPD exacerbation/SOB and HTN urgency Discussed consideration of stress testing, but patient unsure if she wants to , also at this time with her wheezing unable to do secondary to risk of bronchospasm May need to follow up outpatient for further consideration once she's over her overall illness Juan Soto DO Oct 21, 2017 13:42
[2017-10-21] MEDS: cefTRIAXone INJ 1,000 MG in SODIUM CHLORIDE 0.9% INJ 100 ML IV SCH (14:46)
[2017-10-21] MEDS: ENOXAPARIN SODIUM 40 MG/0.4 ML SYRINGE SQ SCH (14:47)
[2017-10-21] MEDS: ACETAMINOPHEN 325 MG TAB PO PRN (16:22)
--- NOTE | 2017-10-21 17:37 | HHI.PR ---
Subjective Remarks Pt states she doesn't feel well but compared to day of admission she is improved. feels weak and tired. still coughing but cannot really "bring up stuff ". States SOB worst w ambulation but she hasn't been doing this. Pt states she has been drinking a lot of water and states she is urinating a lot due to diuretic no nausea or vomiting Objective Vitals Vital Signs Date Time Temp Pulse Resp B/P (MAP) Pulse Ox O2 Delivery O2 Flow Rate FiO2 10/21/17 14:00 82 10/21/17 13:00 72 20 96 10/21/17 12:45 72 25 130/64 (86) 96 10/21/17 12:00 76 10/21/17 11:45 66 20 135/69 (91) 96 10/21/17 10:45 78 40 165/83 (110) 97 10/21/17 10:00 84 10/21/17 09:45 80 22 119/65 (83) 97 10/21/17 08:45 98.3 84 38 131/71 (91) 96 10/21/17 08:00 72 10/21/17 07:52 96 Nasal Cannula 2.00 10/21/17 06:21 72 20 116/61 (79) 96 10/21/17 06:18 84 10/21/17 04:30 84 20 171/78 (109) 99 10/21/17 04:00 83 10/21/17 03:45 98.1 78 27 185/104 (131) 98 10/21/17 02:45 68 17 180/82 (114) 99 10/21/17 02:00 80 10/21/17 00:09 97.9 68 16 173/85 (114) 98 10/21/17 00:05 76 10/20/17 22:00 81 10/20/17 20:19 97.9 74 33 138/72 (94) 98 10/20/17 20:12 78 10/20/17 20:04 98 Nasal Cannula 3.00 10/20/17 19:00 80 26 151/79 (103) 100 10/20/17 18:16 98.5 80 28 126/71 (89) 99 10/20/17 17:45 80 28 198/92 (127) 98 I/O 4/7/18 4/710/20/17 10/21/17 10/21/17 10/21/17 07:00 15:00 23:00 07:00 15:00 23:00 Intake Total 100 ml Balance 100 ml Intake IV Total 100 ml # Voids 3 Result Diagram: 10/20/17 0935 10/21/17 0615 Imaging Last Impressions Chest X-Ray 10/20/17 0959 Signed Impressions: Service Date/Time: Friday, October 20, 2017 10:03 - CONCLUSION: Emphysematous changes of the lungs. No acute abnormality seen. No evidence of congestive heart failure. Barbara Ruelas MD Objective Remarks GENERAL: pleasant female, appears tired CARDIOVASCULAR: Regular rate and rhythm without murmurs, gallops, or rubs. RESPIRATORY: Decreased airflow, coughing during exam, didn't appreciate any wheezing. able to finish her sentences GASTROINTESTINAL: Abdomen soft, non-tender, nondistended. No guarding. MUSCULOSKELETAL: Extremities without edema. NEUROLOGICAL: Awake and alert. Normal speech. A/P Problem List: (1) COPD exacerbation ICD Code: J44.1 - Chronic obstructive pulmonary disease with (acute) exacerbation (2) Hypertensive urgency ICD Code: I16.0 - Hypertensive urgency (3) Troponin level elevated ICD Code: R74.8 - Abnormal levels of other serum enzymes (4) SOB (shortness of breath) ICD Code: R06.02 - Shortness of breath (5) Hyponatremia ICD Code: E87.1 - Hypo-osmolality and hyponatremia Assessment and Plan (1) COPD exacerbation We will continue with nebulized bronchodilators, IV antibiotics and IV steroids Continue with oxygen as needed Patient does follow with Dr. Warren IS and sebastian ordered (2) Hypertensive urgency much Improved with current regimen on metoprolol, amlodipine, lasix, cozaar (3) Troponin level elevated Multifactorial likely Rule out acute coronary syndrome Continue with treatment for blood pressure Echocardiogram showing EF of 40-50%. Cards following. Pt unsure about stress test. aspirin, oxygen, add a beta-matias fluid restriction. daily I's and O's. on IV lasix, will d/c heart healthy diet w fluid restriction 1500ml/day (4) SOB (shortness of breath) Multifactorial at this time Continue with oxygen as needed Follow clinically for treatment of COPD exacerbation and CHF (5) Hyponatremia could be in due to drinking too much water, or due to her pulm condition. check urine and serum osm. fluid restrict and consider adding Na tabs. gentle IV hydration w NS Monitor BMP's Discharge Planning continue intermediate care. monitor BMP's closely. cardiology following Tomasa Lui MD Oct 21, 2017 17:37
[2017-10-21] MEDS: SODIUM CHLOR 0.9% 1000 ML INJ 1,000 ML IV SCH (18:02)
[2017-10-21 19:15] LABS: CALCIUM 8.8 MG/DL (8.5-10.1)
[2017-10-21 19:19] LABS: CREATININE 0.98 MG/DL (0.50-1.00)
[2017-10-21] MEDS: MONTELUKAST SODIUM 10 MG TAB PO SCH (19:59)
--- NOTE | 2017-10-21 20:03 | EKG ---
Date Performed: 10/20/2017 Time Performed: 09:36:08 PTAGE: 82 years EKG: Sinus rhythm VOLTAGE CRITERIA FOR LVH MODERATE ST DEPRESSION Compared to previous tracing, QRS voltage is more pr ominent, ST changes are somewhat more prominent. PACs no longer present ABNORMAL ECG PREVIOUS TRACING : 08/06/2013 11.20 DOCTOR: Phi Hooper Interpretating Date/Time 10/21/2017 20:02:56
--- NOTE | 2017-10-21 20:04 | EKG ---
Date Performed: 10/20/2017 Time Performed: 11:48:18 PTAGE: 82 years EKG: SINUS TACHYCARDIA LEFT VENTRICULAR HYPERTROPHY AND ST-T CHANGE Since the previous tracing, no significant change noted ABNORMAL ECG PREVIOUS TRACING : 10/20/2017 09.36 DOCTOR: Phi Hooper Interpretating Date/Time 10/21/2017 20:03:06
[2017-10-22] VITALS (23 sets, daily range): BP systolic 130–170; BP diastolic 72–93; PULSE 62–100; RESP 16–45; TEMP 98–98.3; O2SAT 95–99
[2017-10-22 02:14] LABS: CALCIUM 8.4 MG/DL (8.5-10.1)
[2017-10-22 02:15] LABS: BICARBONATE 29.5 MEQ/L (21.0-32.0)
[2017-10-22 02:18] LABS: CREATININE 0.69 MG/DL (0.50-1.00)
[2017-10-22] MEDS: methylPREDNISolone SOD SUCC 125 MG/2 ML VIAL IV PUSH SCH ×3 (02:18→14:04)
[2017-10-22] MEDS: CHLORHEXIDINE GLUCONATE 2 % 1 PACK (2 CLOTHS)(taper/protocol) TOPICAL SCH (04:00)
--- NOTE | 2017-10-22 07:44 | PD.CARD.PN ---
Subjective Subjective Remarks Still coughing, improved dyspnea but still on O2 Objective Medications Current Medications Medications (Trade) Dose Ordered Sig/Judy Route Start Time Stop Time Status Last Admin (NS Flush) 2 ml UNSCH PRN IVF 10/20/17 10:00 10/20/17 10:11 (NS Flush) 2 ml BID IV FLUSH 10/20/17 21:00 10/21/17 19:59 (NS Flush) 2 ml UNSCH PRN IV FLUSH 10/20/17 13:30 (Duoneb Neb) 1 ampule Q6HR WHILE AWAKE NEB INH 10/20/17 14:00 10/21/17 19:54 (Albuterol Neb) 2.5 mg Q2HR NEB PRN INH 10/20/17 13:30 10/21/17 04:13 (SoluMEDROL INJ) 60 mg Q6H IV PUSH 10/20/17 14:00 10/22/17 02:18 (Zithromax) 250 mg Taper DAILY PO 10/20/17 15:00 10/25/17 14:59 10/21/17 09:51 Ceftriaxone Sodium 1000 mg/ Sodium Chloride 100 ml @ 200 mls/hr Q24H IV 10/20/17 15:00 10/21/17 14:46 (Lovenox Inj) 40 mg Q24H SQ 10/20/17 14:00 10/21/17 14:47 (Cozaar) 100 mg DAILY PO 10/20/17 15:00 10/21/17 09:51 (Singulair) 10 mg HS PO 10/20/17 21:00 10/21/17 19:59 (Zoloft) 50 mg DAILY PO 10/21/17 09:00 10/21/17 09:51 (Ambien) 5 mg HS PRN PO 10/20/17 21:00 10/21/17 22:49 (Lopressor) 25 mg Q12HR PO 10/20/17 15:00 10/21/17 19:59 (Aspirin) 325 mg DAILY PO 10/20/17 14:00 10/21/17 09:51 Miscellaneous Information Patient in critical care unit? Ass... Q361D .XX 10/20/17 15:30 10/20/17 15:30 (Chlorhexidine 2% Cloth) 3 pack DAILY@04 TOPICAL 10/21/17 04:00 10/25/17 04:01 10/22/17 04:00 (Chlorhexidine 2% Cloth) 3 pack UNSCH PRN TOPICAL 10/20/17 15:30 10/25/17 15:28 (Catapres) 0.1 mg Q6H PRN PO 10/20/17 18:00 10/21/17 04:52 (Norvasc) 5 mg DAILY PO 10/21/17 09:00 10/21/17 09:51 (Tylenol) 650 mg Q4H PRN PO 10/21/17 16:00 10/21/17 16:22 Sodium Chloride 1,000 ml @ 42 mls/hr [id number] IV 10/21/17 17:45 10/21/17 18:02 Vital Signs / I&O Vital Signs Date Time Temp Pulse Resp B/P (MAP) Pulse Ox O2 Delivery O2 Flow Rate FiO2 10/22/17 06:16 90 10/22/17 04:45 78 17 163/93 (116) 97 10/22/17 04:25 87 10/22/17 03:45 98.0 74 16 151/72 (98) 98 10/22/17 02:45 76 17 139/74 (95) 98 10/22/17 02:20 80 10/22/17 00:45 88 37 170/83 (112) 96 10/22/17 00:00 82 10/21/17 23:45 98.5 78 28 153/85 (107) 95 10/21/17 22:45 78 33 176/84 (114) 97 10/21/17 22:16 76 10/21/17 21:00 82 26 146/70 (95) 96 10/21/17 20:45 84 29 148/71 (96) 95 10/21/17 20:00 72 34 121/68 (85) 97 10/21/17 20:00 82 10/21/17 19:54 96 Nasal Cannula 2.00 10/21/17 19:45 98.2 72 19 116/65 (82) 97 10/21/17 18:00 73 10/21/17 17:22 19 10/21/17 16:00 72 10/21/17 14:00 82 10/21/17 13:00 72 20 96 10/21/17 12:45 72 25 130/64 (86) 96 10/21/17 12:00 76 10/21/17 11:45 66 20 135/69 (91) 96 10/21/17 10:45 78 40 165/83 (110) 97 10/21/17 10:00 84 10/21/17 09:45 80 22 119/65 (83) 97 10/21/17 08:45 98.3 84 38 131/71 (91) 96 10/21/17 08:00 72 10/21/17 07:52 96 Nasal Cannula 2.00 I/O 10/21/17 10/21/17 10/21/17 10/22/17 10/22/17 10/22/17 07:00 15:00 23:00 07:00 15:00 23:00 Intake Total 660 ml Output Total 1100 ml 700 ml Balance -440 ml -700 ml Intake Oral 660 ml Output Urine Total 1100 ml 700 ml # Voids 3 Physical Exam GENERAL: This is a well-nourished, well-developed patient, in no apparent distress. CARDIOVASCULAR: Regular rate and rhythm without murmurs, gallops, or rubs. RESPIRATORY: decreased breath sounds all shaikh GASTROINTESTINAL: Abdomen soft, non-tender, nondistended. Normal active bowel sounds MUSCULOSKELETAL: Extremities without clubbing, cyanosis, or edema. NEURO: Alert & Oriented x4 to person, place, time, situation. Moves all ext x4 Laboratory Laboratory Tests Test 10/21/17 18:40 10/22/17 01:45 10/22/17 06:00 Blood Urea Nitrogen 21 MG/DL 21 MG/DL Creatinine 0.98 MG/DL 0.69 MG/DL Random Glucose 211 MG/DL 146 MG/DL Calcium Level 8.8 MG/DL 8.4 MG/DL Sodium Level 125 MEQ/L 128 MEQ/L Potassium Level 3.5 MEQ/L 3.7 MEQ/L Chloride Level 87 MEQ/L 91 MEQ/L Carbon Dioxide Level 27.0 MEQ/L 29.5 MEQ/L Anion Gap 11 MEQ/L 8 MEQ/L Estimat Glomerular Filtration Rate 54 ML/MIN 81 ML/MIN Serum Osmolality 275 MOSM/KG Imaging Last Impressions Chest X-Ray 10/20/17 0959 Signed Impressions: Service Date/Time: Friday, October 20, 2017 10:03 - CONCLUSION: Emphysematous changes of the lungs. No acute abnormality seen. No evidence of congestive heart failure. Barbara Ruelas MD Assessment and Plan Problem List: (1) Cardiomyopathy ICD Codes: I42.9 - Cardiomyopathy, unspecified Plan: LVEF 40-45%' appears compensated w/ low BNP and no chf by cxr; will plan for nuclear stress test for ischemic w/u (2) Troponin level elevated ICD Codes: R74.8 - Abnormal levels of other serum enzymes Plan: Likely due to HTN; tentatively plan for nuclear stress tomorrow if she continues to improve respiratory pop (3) Hypertensive urgency ICD Codes: I16.0 - Hypertensive urgency (4) COPD exacerbation ICD Codes: J44.1 - Chronic obstructive pulmonary disease with (acute) exacerbation (5) SOB (shortness of breath) ICD Codes: R06.02 - Shortness of breath Assessment and Plan Tentative plan for nuc stress in AM Lauri Brooks MD Oct 22, 2017 07:44
[2017-10-22] MEDS: RESP: ALBUTEROL 2.5 MG/IPRATROPIUM 0.5 MG NEB (SCH) INH ×3 (07:45→19:43)
[2017-10-22 08:38] LABS: CALCIUM 8.9 MG/DL (8.5-10.1)
[2017-10-22 08:39] LABS: BICARBONATE 29.6 MEQ/L (21.0-32.0)
[2017-10-22 08:42] LABS: CREATININE 0.6 MG/DL (0.50-1.00)
[2017-10-22] MEDS: LOSARTAN 50 MG TAB PO SCH (08:59)
[2017-10-22] MEDS: SERTRALINE HCL 50 MG TAB PO SCH (09:00)
[2017-10-22] MEDS: SODIUM CHLORIDE 0.9% FLUSH 10 ML FLUSH IV FLUSH SCH ×2 (09:00→20:24)
[2017-10-22] MEDS: METOPROLOL TARTRATE 25 MG TAB PO SCH ×2 (09:00→20:23)
[2017-10-22] MEDS: ASPIRIN 325 MG TAB PO SCH (09:00)
[2017-10-22] MEDS: ACETAMINOPHEN 325 MG TAB PO PRN ×2 (09:01→14:18)
[2017-10-22] MEDS: amLODIPine BESYLATE 5 MG TAB PO SCH (09:01)
[2017-10-22] MEDS: ENOXAPARIN SODIUM 40 MG/0.4 ML SYRINGE SQ SCH (14:04)
[2017-10-22] MEDS: cefTRIAXone INJ 1,000 MG in SODIUM CHLORIDE 0.9% INJ 100 ML IV SCH (15:40)
--- NOTE | 2017-10-22 17:23 | HHI.PR ---
Subjective Remarks Patient states she is feeling a lot better today. She worked with physical therapy and sat on the recliner for long periods of time. She has been doing her breathing exercises. She states her shortness of breath and her cough have improved but she still has the cough. Denies any fevers or chills. Denies any nausea or vomiting. Objective Vitals Vital Signs Date Time Temp Pulse Resp B/P (MAP) Pulse Ox O2 Delivery O2 Flow Rate FiO2 10/22/17 16:30 70 23 148/80 (102) 98 10/22/17 16:00 78 10/22/17 15:18 21 10/22/17 14:00 74 10/22/17 12:00 66 29 155/79 (104) 96 10/22/17 12:00 82 10/22/17 10:45 76 27 161/78 (105) 99 10/22/17 10:00 89 10/22/17 08:45 92 22 149/74 (99) 97 10/22/17 08:40 100 35 168/79 (108) 97 10/22/17 08:00 98 10/22/17 07:45 98.2 80 45 153/86 (108) 95 10/22/17 07:45 98 Nasal Cannula 2.00 10/22/17 06:16 90 10/22/17 04:45 78 17 163/93 (116) 97 10/22/17 04:25 87 10/22/17 03:45 98.0 74 16 151/72 (98) 98 10/22/17 02:45 76 17 139/74 (95) 98 10/22/17 02:20 80 10/22/17 00:45 88 37 170/83 (112) 96 10/22/17 00:00 82 10/21/17 23:45 98.5 78 28 153/85 (107) 95 10/21/17 22:45 78 33 176/84 (114) 97 10/21/17 22:16 76 10/21/17 21:00 82 26 146/70 (95) 96 10/21/17 20:45 84 29 148/71 (96) 95 10/21/17 20:00 72 34 121/68 (85) 97 10/21/17 20:00 82 10/21/17 19:54 96 Nasal Cannula 2.00 10/21/17 19:45 98.2 72 19 116/65 (82) 97 10/21/17 18:00 73 I/O 10/21/17 10/21/17 10/21/17 10/22/17 10/22/17 10/22/17 07:00 15:00 23:00 07:00 15:00 23:00 Intake Total 660 ml Output Total 1100 ml 700 ml Balance -440 ml -700 ml Intake Oral 660 ml Output Urine Total 1100 ml 700 ml # Voids 3 Result Diagram: 10/20/17 0935 10/22/17 0730 Imaging Last Impressions Chest X-Ray 10/20/17 0959 Signed Impressions: Service Date/Time: Friday, October 20, 2017 10:03 - CONCLUSION: Emphysematous changes of the lungs. No acute abnormality seen. No evidence of congestive heart failure. Barbara Ruelas MD Objective Remarks GENERAL: pleasant female, appears tired CARDIOVASCULAR: Regular rate and rhythm without murmurs, gallops, or rubs. RESPIRATORY: Decreased airflow, no cough during exam, mild exp wheezing. able to finish her sentences GASTROINTESTINAL: Abdomen soft, non-tender, nondistended. No guarding. MUSCULOSKELETAL: Extremities without edema. NEUROLOGICAL: Awake and alert. Normal speech. A/P Problem List: (1) COPD exacerbation ICD Code: J44.1 - Chronic obstructive pulmonary disease with (acute) exacerbation (2) Hypertensive urgency ICD Code: I16.0 - Hypertensive urgency (3) Troponin level elevated ICD Code: R74.8 - Abnormal levels of other serum enzymes (4) SOB (shortness of breath) ICD Code: R06.02 - Shortness of breath (5) Hyponatremia ICD Code: E87.1 - Hypo-osmolality and hyponatremia Assessment and Plan (1) COPD exacerbation We will continue with nebulized bronchodilators, IV antibiotics. Decrease IV steroids and monitor pt closely Continue with oxygen as needed Patient does follow with Dr. Warren Encouraged of IS and acapella (2) Hypertensive urgency Improved on metoprolol, amlodipine, lasix, cozaar (3) Troponin level elevated Multifactorial likely Rule out acute coronary syndrome Continue with treatment for blood pressure Echocardiogram showing EF of 40-55%. Cards following. Patient agreeable to nuclear stress test tomorrow morning. aspirin, oxygen, add a beta-matias fluid restriction. daily I's and O's. We will start her on low-dose p.o. Lasix 20 mg daily. s/p IV lasix heart healthy diet w fluid restriction 1500ml/day (4) SOB (shortness of breath) Multifactorial at this time Continue with oxygen as needed Follow clinically for treatment of COPD exacerbation and CHF (5) Hyponatremia could be in due to drinking too much water, or due to her pulm condition. urine and serum osm wnl. fluid restrict and consider adding Na tabs however currently her sodium levels are slowly trending up. gentle IV hydration w NS Continue to monitor BMPs. Discharge Planning Stress test scheduled for tomorrow. Continue to taper steroids. monitor sodium levels closely. cardiology following Tomasa Lui MD Oct 22, 2017 17:23
[2017-10-22] MEDS: SODIUM CHLOR 0.9% 1000 ML INJ 1,000 ML IV SCH (17:34)
[2017-10-22 19:14] LABS: BICARBONATE 24.8 MEQ/L (21.0-32.0); CALCIUM 8.7 MG/DL (8.5-10.1)
[2017-10-22 19:18] LABS: CREATININE 0.92 MG/DL (0.50-1.00)
[2017-10-22] MEDS: MONTELUKAST SODIUM 10 MG TAB PO SCH (20:23)
[2017-10-22] MEDS: ZOLPIDEM TARTRATE 5 MG TAB PO PRN (20:24)
[2017-10-23] VITALS (18 sets, daily range): BP systolic 124–192; BP diastolic 68–95; PULSE 62–86; RESP 15–42; TEMP 96.5–98.4; O2SAT 91–100
[2017-10-23] MEDS: methylPREDNISolone SOD SUCC 125 MG/2 ML VIAL IV PUSH SCH ×2 (02:56→14:05)
[2017-10-23] MEDS: CHLORHEXIDINE GLUCONATE 2 % 1 PACK (2 CLOTHS)(taper/protocol) TOPICAL SCH (04:00)
[2017-10-23 04:59] LABS: CALCIUM 8.5 MG/DL (8.5-10.1)
[2017-10-23 05:26] LABS: BICARBONATE 27.6 MEQ/L (21.0-32.0); CREATININE 0.5 MG/DL (0.50-1.00)
--- NOTE | 2017-10-23 06:11 | PD.CARD.PN ---
Subjective Subjective Remarks Patient has mild shortness of breath but denies any other cardiac symptoms, GI symptoms or bleeding. Telemetry reveals sinus rhythm with PACs. Echocardiogram with mild left ventricular dysfunction. Objective Medications Current Medications Medications (Trade) Dose Ordered Sig/Judy Route Start Time Stop Time Status Last Admin (NS Flush) 2 ml BID IV FLUSH 10/20/17 21:00 10/21/17 19:59 (NS Flush) 2 ml UNSCH PRN IV FLUSH 10/20/17 13:30 (Duoneb Neb) 1 ampule Q6HR WHILE AWAKE NEB INH 10/20/17 14:00 10/22/17 19:43 (Albuterol Neb) 2.5 mg Q2HR NEB PRN INH 10/20/17 13:30 10/21/17 04:13 (Zithromax) 250 mg Taper DAILY PO 10/20/17 15:00 10/25/17 14:59 10/21/17 09:51 Ceftriaxone Sodium 1000 mg/ Sodium Chloride 100 ml @ 200 mls/hr Q24H IV 10/20/17 15:00 10/22/17 15:40 (Lovenox Inj) 40 mg Q24H SQ 10/20/17 14:00 10/22/17 14:04 (Cozaar) 100 mg DAILY PO 10/20/17 15:00 10/22/17 08:59 (Singulair) 10 mg HS PO 10/20/17 21:00 10/22/17 20:23 (Zoloft) 50 mg DAILY PO 10/21/17 09:00 10/22/17 09:00 (Ambien) 5 mg HS PRN PO 10/20/17 21:00 10/22/17 20:24 (Lopressor) 25 mg Q12HR PO 10/20/17 15:00 10/22/17 20:23 (Aspirin) 325 mg DAILY PO 10/20/17 14:00 10/22/17 09:00 Miscellaneous Information Patient in critical care unit? Ass... [id number] .XX 10/20/17 15:30 10/20/17 15:30 (Chlorhexidine 2% Cloth) 3 pack DAILY@04 TOPICAL 10/21/17 04:00 10/25/17 04:01 10/23/17 04:00 (Chlorhexidine 2% Cloth) 3 pack UNSCH PRN TOPICAL 10/20/17 15:30 10/25/17 15:28 (Catapres) 0.1 mg Q6H PRN PO 10/20/17 18:00 10/21/17 04:52 (Norvasc) 5 mg DAILY PO 10/21/17 09:00 10/22/17 09:01 (Tylenol) 650 mg Q4H PRN PO 10/21/17 16:00 10/22/17 14:18 Sodium Chloride 1,000 ml @ 42 mls/hr [id number] IV 10/21/17 17:45 10/21/17 18:02 (SoluMEDROL INJ) 60 mg Q12H IV PUSH 10/23/17 02:00 10/23/17 02:56 (Lasix) 20 mg DAILY PO 10/23/17 09:00 (KCl) 30 meq ONCE ONCE PO 10/23/17 06:15 10/23/17 06:16 UNV Vital Signs / I&O Vital Signs Date Time Temp Pulse Resp B/P (MAP) Pulse Ox O2 Delivery O2 Flow Rate FiO2 10/23/17 06:03 80 10/23/17 06:01 78 27 192/95 (127) 98 10/23/17 04:10 84 10/23/17 03:45 96.5 66 16 176/83 (114) 100 10/23/17 02:16 86 10/23/17 00:08 97.8 74 15 168/93 (118) 100 10/23/17 00:00 80 10/22/17 23:45 74 16 154/89 (110) 99 10/22/17 22:00 62 10/22/17 20:00 80 10/22/17 20:00 98.3 82 19 130/74 (92) 99 10/22/17 19:45 97 Nasal Cannula 2.00 10/22/17 18:00 71 10/22/17 16:30 70 23 148/80 (102) 98 10/22/17 16:00 78 10/22/17 15:18 21 10/22/17 14:00 74 10/22/17 12:00 66 29 155/79 (104) 96 10/22/17 12:00 82 10/22/17 10:45 76 27 161/78 (105) 99 10/22/17 10:00 89 10/22/17 08:45 92 22 149/74 (99) 97 10/22/17 08:40 100 35 168/79 (108) 97 10/22/17 08:00 98 10/22/17 07:45 98.2 80 45 153/86 (108) 95 10/22/17 07:45 98 Nasal Cannula 2.00 10/22/17 06:16 90 I/O 10/22/17 10/22/17 10/22/17 10/23/17 10/23/17 10/23/17 07:00 15:00 23:00 07:00 15:00 23:00 Intake Total 1070 ml Output Total 700 ml 401 ml Balance -700 ml 669 ml Intake Oral 450 ml IV Total 620 ml Output Urine Total 700 ml 400 ml Stool Total 1 ml Physical Exam GENERAL: Well-nourished, well-developed patient in no apparent distress. SKIN: Warm and dry. NECK: JVD normal - less than or equal to 5 cm H20. CARDIOVASCULAR: Regular rate and rhythm without murmurs, gallops, or rubs. RESPIRATORY: Decreased breath sounds - equal bilaterally. No accessory muscle use. No rales or rubs. Moderate kahn expiratory wheezes. PERIPHERY: No cyanosis, or edema. Laboratory Laboratory Tests Test 10/22/17 07:30 10/22/17 18:50 10/23/17 04:38 Blood Urea Nitrogen 19 MG/DL 22 MG/DL 18 MG/DL Creatinine 0.60 MG/DL 0.92 MG/DL 0.50 MG/DL Random Glucose 123 MG/DL 205 MG/DL 98 MG/DL Calcium Level 8.9 MG/DL 8.7 MG/DL 8.5 MG/DL Sodium Level 129 MEQ/L 129 MEQ/L 131 MEQ/L Potassium Level 3.5 MEQ/L 3.5 MEQ/L 3.3 MEQ/L Chloride Level 92 MEQ/L 93 MEQ/L 96 MEQ/L Carbon Dioxide Level 29.6 MEQ/L 24.8 MEQ/L 27.6 MEQ/L Anion Gap 7 MEQ/L 11 MEQ/L 7 MEQ/L Estimat Glomerular Filtration Rate 96 ML/MIN 58 ML/MIN 118 ML/MIN Imaging Reviewed Assessment and Plan Assessment and Plan Problems: Exacerbation COPD Minimally elevated troponin, likely demand mediated. Mild left ventricular dysfunction on echocardiogram without congestive heart failure. Hypertension DO NOT RESUSCITATE Recommendations: We'll hold off on nuclear stress testing given wheezing and possibility the medication could exacerbate things. We will treat her conservatively. Increase amlodipine for blood pressure control Aspirin Treatment of COPD per primary service DNR Repletion of potassium. I will leave further management to the primary service. All questions answered. Torsten Lux MD Oct 23, 2017 06:11
[2017-10-23] MEDS: cloNIDine HCL 0.1 MG TAB PO PRN (06:15)
[2017-10-23] MEDS ORDERED: POTASSIUM CHLORIDE 10 MEQ CONTROLLED RELEASE TAB PO ONE (06:15)
[2017-10-23] MEDS: RESP: ALBUTEROL 2.5 MG/IPRATROPIUM 0.5 MG NEB (SCH) INH ×3 (07:50→19:45)
[2017-10-23] MEDS: AZITHROMYCIN 250 MG TAB PO SCH (09:17)
[2017-10-23] MEDS: METOPROLOL TARTRATE 25 MG TAB PO SCH ×2 (09:17→19:52)
[2017-10-23] MEDS: amLODIPine BESYLATE 5 MG TAB PO SCH ×2 (09:17→19:52)
[2017-10-23] MEDS: ASPIRIN 325 MG TAB PO SCH (09:17)
[2017-10-23] MEDS: LOSARTAN 50 MG TAB PO SCH (09:18)
[2017-10-23] MEDS: SERTRALINE HCL 50 MG TAB PO SCH (09:19)
[2017-10-23] MEDS: SODIUM CHLORIDE 0.9% FLUSH 10 ML FLUSH IV FLUSH SCH ×2 (09:19→19:53)
[2017-10-23] MEDS: FUROSEMIDE 20 MG TAB PO SCH (09:19)
--- NOTE | 2017-10-23 12:08 | HHI.PR ---
Subjective Remarks Nursing denies any deterioration since last night. Patient herself says she had some bouts of diarrhea since last night. No nausea or vomiting. Says that her breathing was slightly worse this morning than yesterday. Denies having any chest pain. Objective Vital Signs Date Time Temp Pulse Resp B/P (MAP) Pulse Ox O2 Delivery O2 Flow Rate FiO2 10/23/17 10:00 70 10/23/17 08:00 98.4 70 19 139/74 (95) 97 10/23/17 08:00 76 10/23/17 07:50 97 Nasal Cannula 1.50 10/23/17 07:07 72 22 157/82 (107) 98 10/23/17 06:03 80 10/23/17 06:01 78 27 192/95 (127) 98 10/23/17 04:10 84 10/23/17 03:45 96.5 66 16 176/83 (114) 100 10/23/17 02:16 86 10/23/17 00:08 97.8 74 15 168/93 (118) 100 10/23/17 00:00 80 10/22/17 23:45 74 16 154/89 (110) 99 10/22/17 22:00 62 10/22/17 20:00 80 10/22/17 20:00 98.3 82 19 130/74 (92) 99 10/22/17 19:45 97 Nasal Cannula 2.00 10/22/17 18:00 71 10/22/17 16:30 70 23 148/80 (102) 98 10/22/17 16:00 78 10/22/17 15:18 21 10/22/17 14:00 74 I/O 10/22/17 10/22/17 10/22/17 10/23/17 10/23/17 10/23/17 07:00 15:00 23:00 07:00 15:00 23:00 Intake Total 1070 ml 120 ml Output Total 700 ml 401 ml 700 ml Balance -700 ml 669 ml -700 ml 120 ml Intake Oral 450 ml 120 ml IV Total 620 ml Output Urine Total 700 ml 400 ml 700 ml Stool Total 1 ml # Voids 2 # Bowel Movements 2 Result Diagram: 10/20/17 0935 10/23/17 0438 Objective Remarks Relatively clear lungs bilaterally with good aeration, no acute distress Abdomen soft, nontender nondistended A/P Assessment and Plan bronchiectasis exacerbation w/ chronic lung disease -Continue duo nebs, Rocephin, adding on Mucomyst, IV steroids -Patient does follow with Dr. Warren outpt, pulmonology consult pending -Encouraged of IS and acapella intermittent hypoxia - likely 2/2 bronchiectasis Troponin level elevated -Has plateaued, multifactorial in etiology, possibly secondary to lung disease versus acute coronary syndrome. Stress test canceled due to the patient having wheezing this morning per cardiology -Echocardiogram showing EF of 40-45%. Cards following. -aspirin, beta-matias Mild diastolic dysfunction per echo -fluid restriction. Lasix 20 mg daily. 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
[2017-10-23] MEDS: ENOXAPARIN SODIUM 40 MG/0.4 ML SYRINGE SQ SCH (14:06)
[2017-10-23] MEDS: RESP: ACETYLCYSTEINE 10% 10 ML NEB NEB SCH ×2 (14:53→19:45)
[2017-10-23] MEDS: cefTRIAXone INJ 1,000 MG in SODIUM CHLORIDE 0.9% INJ 100 ML IV SCH (16:12)
[2017-10-23] MEDS: SODIUM CHLOR 0.9% 1000 ML INJ 1,000 ML IV SCH (19:21)
[2017-10-23] MEDS: MONTELUKAST SODIUM 10 MG TAB PO SCH (19:52)
[2017-10-23] MEDS: ZOLPIDEM TARTRATE 5 MG TAB PO PRN (22:57)
[2017-10-24] VITALS (16 sets, daily range): BP systolic 140–190; BP diastolic 72–98; PULSE 65–80; RESP 19–39; TEMP 97.5–98.7; O2SAT 94–99
[2017-10-24] MEDS: methylPREDNISolone SOD SUCC 125 MG/2 ML VIAL IV PUSH SCH (03:10)
[2017-10-24] MEDS: CHLORHEXIDINE GLUCONATE 2 % 1 PACK (2 CLOTHS)(taper/protocol) TOPICAL SCH (04:00)
[2017-10-24] MEDS: cloNIDine HCL 0.1 MG TAB PO PRN (04:04)
[2017-10-24 04:46] LABS: BICARBONATE 27.8 MEQ/L (21.0-32.0); CALCIUM 8.5 MG/DL (8.5-10.1)
[2017-10-24 04:50] LABS: CREATININE 0.48 MG/DL (0.50-1.00)
[2017-10-24] MEDS: RESP: ACETYLCYSTEINE 10% 10 ML NEB NEB SCH ×2 (07:54→14:32)
[2017-10-24] MEDS: RESP: ALBUTEROL 2.5 MG/IPRATROPIUM 0.5 MG NEB (SCH) INH (07:54)
[2017-10-24] MEDS: amLODIPine BESYLATE 5 MG TAB PO SCH (08:54)
[2017-10-24] MEDS: FUROSEMIDE 20 MG TAB PO SCH (08:54)
[2017-10-24] MEDS: SERTRALINE HCL 50 MG TAB PO SCH (08:54)
[2017-10-24] MEDS: ASPIRIN 325 MG TAB PO SCH (08:54)
[2017-10-24] MEDS: SODIUM CHLORIDE 0.9% FLUSH 10 ML FLUSH IV FLUSH SCH (08:54)
[2017-10-24] MEDS: METOPROLOL TARTRATE 25 MG TAB PO SCH (08:54)
[2017-10-24] MEDS: LOSARTAN 50 MG TAB PO SCH (08:54)
[2017-10-24] MEDS ORDERED: LOPERAMIDE HCL 2 MG CAP PO PRN (09:30)
[2017-10-24] MEDS ORDERED: LOPERAMIDE HCL 2 MG CAP PO ONE (09:30)
[2017-10-24] MEDS ORDERED: POTASSIUM CHLORIDE 10 MEQ CONTROLLED RELEASE TAB PO SCH (09:30)
[2017-10-24] MEDS ORDERED: CEFUROXIME AXETIL 500 MG TAB PO SCH (09:30)
[2017-10-24] MEDS ORDERED: predniSONE 20 MG TAB PO SCH (09:30)
[2017-10-24] MEDS: AZITHROMYCIN 250 MG TAB PO SCH (10:01)
[2017-10-24] MEDS ORDERED: OXYGENDME NAS.CANULA (12:08)
--- NOTE | 2017-10-24 12:52 | HHI.DCPOC ---
Discharge Care Plan Diagnosis: (1) Troponin level elevated (2) Hypertensive urgency (3) Bronchiectasis (4) Cardiomyopathy Goals to Promote Your Health * To prevent worsening of your condition and complications * To maintain your health at the optimal level Directions to Meet Your Goals Take your medications as prescribed Follow your dietary instruction Follow activity as directed Keep your appointments as scheduled Take your immunizations and boosters as scheduled If your symptoms worsen call your PCP, if no PCP go to Urgent Care Center or Emergency Room Smoking is Dangerous to Your Health. Avoid second hand smoke Call the 24-hour hour crisis hotline for domestic abuse at Sohan Downey Oct 24, 2017 12:52
[2017-10-24] MEDS ORDERED: AMLO5 PO (13:01)
[2017-10-24] MEDS ORDERED: KLOR10TA PO (13:01)
[2017-10-24] MEDS ORDERED: FURO20TA PO (13:01)
[2017-10-24] MEDS ORDERED: METO25TA3 PO (13:01)
[2017-10-24] MEDS ORDERED: PRED10 PO (13:01)
[2017-10-24] MEDS ORDERED: ASA325 PO (13:01)
[2017-10-24] MEDS: ENOXAPARIN SODIUM 40 MG/0.4 ML SYRINGE SQ SCH (13:08)
[2017-10-24] MEDS: RESP: ALBUTEROL 2.5 MG/3 ML NEB (PRN) INH (14:32)
--- NOTE | 2017-10-24 14:39 | HHI.DS ---
Discharge Summary Admission Date Oct 20, 2017 at 12:03 Discharge Date: Oct 24, 2017 Admitting Diagnosis Acute bronchiectasis (1) COPD exacerbation ICD Code: J44.1 - Chronic obstructive pulmonary disease with (acute) exacerbation (2) Hypertensive urgency ICD Code: I16.0 - Hypertensive urgency (3) Troponin level elevated ICD Code: R74.8 - Abnormal levels of other serum enzymes (4) SOB (shortness of breath) ICD Code: R06.02 - Shortness of breath (5) Hyponatremia ICD Code: E87.1 - Hypo-osmolality and hyponatremia Procedures ECHOCARDIOGRAM CONCLUSIONS The left ventricular systolic function is moderately reduced with an estimated ejection fraction in the range of 40-45%. Mild mitral valve regurgitation. There is mild tricuspid valve regurgitation. Doppler parameters are consistent with impaired left ventricular relaxtion ( grade 1 diastolic dysfunction). Brief History - From Admission Patient is an 82-year-old female with a history of COPD who comes in with increased shortness of breath and dyspnea on exertion for about a week. She did see her primary emotionally impaired teacher 4 days ago and was given IV antibiotics and IV steroid infusions in the office however this morning she began feeling much worse with increased edema and increased shortness of breath and her blood pressure was elevated. She came to the hospital for further evaluation. She has received bronchodilators here and felt a little bit better. Her respiratory rate and blood pressure were elevated on arrival, blood pressure was 226/115 and respiratory rate is 22. She had an abnormal EKG was discharged from left ventricular strain and elevated troponin. Patient also chest pain. She has not had any chest pressure. Patient's been recommended for admission to the hospital due to acute respiratory failure and edema possible anginal equivalent CBC/BMP: 10/20/17 0935 10/24/17 0427 Significant Findings Laboratory Tests Test 10/21/17 18:40 10/22/17 01:45 10/22/17 06:00 10/22/17 07:30 Blood Urea Nitrogen 21 MG/DL (7-18) 21 MG/DL (7-18) 19 MG/DL (7-18) Random Glucose 211 MG/DL (74-106) 146 MG/DL (74-106) 123 MG/DL (74-106) Sodium Level 125 MEQ/L (136-145) 128 MEQ/L (136-145) 129 MEQ/L (136-145) Chloride Level 87 MEQ/L (98-107) 91 MEQ/L (98-107) 92 MEQ/L (98-107) Estimat Glomerular Filtration Rate 54 ML/MIN (>89) 81 ML/MIN (>89) Calcium Level 8.4 MG/DL (8.5-10.1) Test 10/22/17 18:50 10/23/17 04:38 10/23/17 17:25 10/24/17 04:27 Blood Urea Nitrogen 22 MG/DL (7-18) Random Glucose 205 MG/DL (74-106) Sodium Level 129 MEQ/L (136-145) 131 MEQ/L (136-145) 133 MEQ/L (136-145) Chloride Level 93 MEQ/L (98-107) 96 MEQ/L (98-107) 97 MEQ/L (98-107) Estimat Glomerular Filtration Rate 58 ML/MIN (>89) Potassium Level 3.3 MEQ/L (3.5-5.1) 3.4 MEQ/L (3.5-5.1) Creatinine 0.48 MG/DL (0.50-1.00) Imaging Last Impressions Chest X-Ray 10/20/17 0959 Signed Impressions: Service Date/Time: Friday, October 20, 2017 10:03 - CONCLUSION: Emphysematous changes of the lungs. No acute abnormality seen. No evidence of congestive heart failure. Barbara Ruelas MD PE at Discharge GENERAL: pleasant female, appears tired CARDIOVASCULAR: Regular rate and rhythm without murmurs, gallops, or rubs. RESPIRATORY: Decreased airflow, no cough during exam, mild exp wheezing. able to finish her sentences GASTROINTESTINAL: Abdomen soft, non-tender, nondistended. No guarding. MUSCULOSKELETAL: Extremities without edema. NEUROLOGICAL: Awake and alert. Normal speech. Hospital Course This is a 82-year-old female with known history of bronchiectasis, chronic obstructive pulmonary disease hypertension, chronic pain who resents emergency department because increased shortness of breath, dyspnea on exertion for approximately a week. Patient did go to her primary emotionally impaired teacher Dr. Matos is 4 days prior to coming to emergency department and was given the IV antibiotics and IV steroid infusion in his office however he became much worse with increased lower extremity edema, blood pressure severely elevated. Patient came to the emergency department with hypertensive emergency with blood pressure 226/115 with significant shortness of breath, difficulty breathing. Initial laboratory studies indicate a equivocal elevated troponin level with mild elevated BNP. Chest x-ray did indicate emphysematous changes without any evidence of congestive heart failure. Patient was started on nebulizer treatments, antihypertensive medication, diuretic, IV steroids, antibiotics. Patient did have cardiology consult for her underlying cardiac issues and to help with management. It was indicated that there is plans to pursue a nuclear stress test, however cardiology indicates that her lung issue needed to be addressed and can be done in the outpatient setting. Echocardiogram was performed which did show cardiomyopathy with ejection fraction 40-45% with severe pulmonary hypertension with pulmonary peak pressure of 58.2. Patient's emotionally impaired teacher was consulted, however he does not see patients in [employer] system. Patient clinically improved. She has been converted to p.o. medication. Her O2 saturation is 95% on 1 L. Home oxygen walk study was performed as indicated patient will require oxygen on exertion at this time. Case management consulted to arrange home oxygen. Patient indicates that she plans on following up with her emotionally impaired teacher for further management upon discharge. We will plan discharge accordingly. Pt Condition on Discharge: Stable Discharge Disposition: Discharge Home Discharge Time: > 30 minutes Discharge Instructions DIET: Follow Instructions for: Heart Healthy Diet Activities you can perform: Regular-No Restrictions Follow up Referrals: Cardiology - 1 Week PCP Follow-up - 1 Week Pulmonology - 1 Week with Barbra Matos MD New Medications: Oxygen (O2) (Oxygen (O2)) Device LITER JULIO.CANULA CONTINUOUS for Prevent Hypoxemia, #2 Oxygen Concentrator Portable Gaseous 2 L/min via Nasal Canula Continuous For 99 months Prednisone (Prednisone) 10 Mg Tab 10 MG PO DIRECTED for Bronchiectasis, #60 TAB 0 Refills prednisone 40 mg twice daily for 3 days, then prednisone 30 mg twice daily for 3 days, then prednisone 20 mg twice daily for 3 days, then prednisone 10 mg twice daily for 3 days, then prednisone 10 mg daily for 3 days Amlodipine (Norvasc) 5 Mg Tab 5 MG PO BID for Blood Pressure Management for 30 Days, #60 TAB Aspirin (Px Aspirin) 325 Mg Tab 325 MG PO DAILY for Cardiac protection for 30 Days, #30 TAB Furosemide (Furosemide) 20 Mg Tab 20 MG PO DAILY for Blood Pressure Management for 30 Days, #30 TAB Metoprolol Tartrate (Metoprolol Tartrate) 25 Mg Tab 25 MG PO Q12HR for Blood Pressure Management for 30 Days, TAB Potassium Chloride ER (Klor-Con 10) 10 Meq Tab 10 MEQ PO DAILY for electrolyte replacement for 30 Days, #30 TAB Continued Medications: Budesonide Neb (Budesonide Neb) 0.5 Mg/2 Ml Neb 0.5 MG NEB Q12HR NEB for Breathing Treatment, #60 NEBULE 0 Refills Tuujslkcyz-Zcuwwjgtjogda-Zewlmlkf (Fioricet) 50-300-40 Mg Cap 1 CAP PO Q4H PRN for HEADACHE, CAP 0 Refills Calcium Carbonate-Cholecalciferol (Calcium 600 with Vitamin D) 600-400 mg-Unit Tab 2 TAB PO DAILY for Calcium Supplement, TAB 0 Refills Cyanocobalamin (B-12) 1,000 Mcg Subl 1000 MCG SL DAILY for Nutritional Supplement, TAB.SL 0 Refills Hydrocodone-Acetaminophen (Hydrocodone-Acetaminophen) 7.5-300 Mg Tab 1 TAB PO Q4H PRN for PAIN, TAB 0 Refills Ipratropium-Albuterol Neb (Duoneb) 0.5-2.5 Mg/3 Ml Neb 1 NEBULE INH Q4HR NEB for Breathing Treatment, #180 NEBULE 0 Refills Losartan (Losartan) 100 Mg Tab 100 MG PO DAILY for Blood Pressure Management, #30 TAB 0 Refills Montelukast (Montelukast) 10 Mg Tab 10 MG PO HS, #30 TAB 0 Refills Multiple Vitamin (Multiple Vitamin) 1 Tab 1 TAB PO DAILY for Nutritional Supplement, TAB 0 Refills Sertraline (Sertraline) 50 Mg Tab 50 MG PO DAILY, #30 TAB 0 Refills Zolpidem (Zolpidem) 5 Mg Tab 5 MG PO HS PRN for INSOMNIA, TAB 0 Refills Discontinued Medications: Azithromycin (Azithromycin) 250 Mg Tab 250 MG PO DIRECTED for Infection, #6 TAB 0 Refills Take 2 tabs (500 mg) on day 1 then 1 tab daily x 4 days. Benzonatate (Benzonatate) 100 Mg Cap 100 MG PO TID PRN for COUGH, CAP 0 Refills Dexamethasone Inj (Dexamethasone Inj) 10 Mg/Ml Inj 10 MG IV DAILY Levofloxacin Inj (Levofloxacin Inj) 500 Mg/100 Ml Bagp 500 MG IV Q24H for Infection, BAG 0 Refills Sohan Downey Oct 24, 2017 14:39
[2017-10-25] MEDS ORDERED: PRED10 PO (11:56)
== END 2017-10-24 17:30 | disposition home or self-care (01) | DRG 191 ==
LOC: PHED 09:26 → PHEDA 12:03 → PHICU 13:54
PROVIDERS: ADMIT Hospitalist; ATTEND Hospitalist
DX: J47.1 Bronchiectasis with (acute) exacerbation (principal); I42.9 Cardiomyopathy, unspecified; E22.2 Syndrome of inappropriate secretion of antidiuretic hormone; I27.20 Pulmonary hypertension, unspecified; I11.0 Hypertensive heart disease with heart failure; I50.30 Unspecified diastolic (congestive) heart failure; I16.1 Hypertensive emergency; G62.9 Polyneuropathy, unspecified; J45.909 Unspecified asthma, uncomplicated; E78.5 Hyperlipidemia, unspecified; G47.00 Insomnia, unspecified; I49.1 Atrial premature depolarization; R19.7 Diarrhea, unspecified; R09.02 Hypoxemia; I08.1 Rheumatic disorders of both mitral and tricuspid valves; R74.8 Abnormal levels of other serum enzymes; M19.90 Unspecified osteoarthritis, unspecified site; F32.9 Major depressive disorder, single episode, unspecified; Z66 Do not resuscitate; Z88.5 Allergy status to narcotic agent; Z96.653 Presence of artificial knee joint, bilateral
CPT/HCPCS: 71045; 80048; 80053; 82550; 82552; 83880; 83930; 83935; 84484; 85025; 85379; 87040; 87070; 87205; 87493; 87640; 87641; 87804; 93005; 93306; 94150; 94618; 94640; 94664; 94667; 94668; 96365; 96375; J0696; J1650; J1940; J1956; J2930; J7030; J7512; J7608; J7613